=== PATIENT | female | born 1995 | race Caucasian/White ===

== ENCOUNTER 2020-09-02 05:18 | Inpatient (IN) | payer OTHER ==
[2020-09-02] MEDS ORDERED: Sodium Chloride 0.9% 10 ML SDV IV PRN (05:59)
[2020-09-02] MEDS ORDERED: Citric Acid/Sodium Citrate Solution 30 ML Cup PO ONE (05:59)
[2020-09-02] MEDS ORDERED: ceFAZolin 2 GM in Premix Bag 1 BAG IV ONE (05:59)
[2020-09-02] MEDS ORDERED: Sodium Chloride 0.9% 2.5 ML Syringe FLUSH PRN (05:59)
[2020-09-02] MEDS ORDERED: Sodium Chloride 0.9% 10 ML Syringe FLUSH PRN (05:59)
[2020-09-02] MEDS ORDERED: Oxytocin/0.9 % Sodium Chloride 30 UNIT/500 ML BAG IV SCH (06:00)
[2020-09-02] MEDS: Lactated Ringers 1,000 ML IV SCH ×4 (06:35→19:39)
--- NOTE | 2020-09-02 06:47 | PCM.PREANE ---
Preanesthetic Assessment - Anesthesia/Transfusion/Family Hx Anesthesia History: Prior Anesthesia Without Reaction Family History of Anesthesia Reaction: No Transfusion History: No Prior Transfusion(s) - Review of Systems General: No Symptoms Pulmonary: No Symptoms Cardiovascular: No Symptoms Gastrointestinal: No Symptoms Neurological: No Symptoms Other: Reports: None - Physical Assessment NPO Status Date: 09/01/20 NPO Status Time: 21:30 Height: 1.68 m Weight: 133.356 kg ASA Class: 3 Mental Status: Alert & Oriented x3 Airway Class: Mallampati = 1 Dentition: Reports: Normal Dentition Thyro-Mental Finger Breadths: 3 Mouth Opening Finger Breadths: 3 ROM/Head Extension: Full Lungs: Clear to Auscultation, Normal Respiratory Effort Cardiovascular: Regular Rate, Regular Rhythm - Lab Values: Laboratory Last Values Blood Type A POSITIVE 08/30/20 08:00 Antibody Screen NEGATIVE 08/30/20 08:00 - Allergies Allergies/Adverse Reactions: Allergies Allergy/AdvReac Type Severity Reaction Status Date / Time No Known Allergies Allergy Verified 08/31/20 08:42 - Blood Blood Available: Yes - Acknowledgements Anesthesia Type Planned: Spinal (The patient understands and accepts the anesthetic risks and benefits, including failed spinal. All questions answered. She has signed the consent. ) Pt an Appropriate Candidate for the Planned Anesthesia: Yes Alternatives and Risks of Anesthesia Discussed w Pt/Guardian: Yes Pt/Guardian Understands and Agrees with Anesthesia Plan: Yes PreAnesthesia Questionnaire - Past Health History Medical/Surgical History: Denies Medical/Surgical History HEENT History: Reports: None Cardiovascular History: Reports: None Respiratory History: Reports: None Gastrointestinal History: Reports: Other (See Below) Other Gastrointestinal History: occasional heartburn with Genitourinary History: Reports: None REHAB SERVICES AIDE History: Reports: Musculoskeletal History: Reports: Back Pain, Chronic (from bulging discs, saw a Chiropracter who made "adjustments".) Neurological History: Reports: None Psychiatric History: Reports: None Endocrine/Metabolic History: Reports: Obesity/BMI 30+ (morbid obesity:47.5) Hematologic History: Reports: Anemia Immunologic History: Reports: None Oncologic (Cancer) History: Reports: None Dermatologic History: Reports: None - Past Surgical History Head Surgeries/Procedures: Reports: None HEENT Surgical History: Reports: None Cardiovascular Surgical History: Reports: None Respiratory Surgical History: Reports: None GI Surgical History: Reports: None Female Surgical History: Reports: Section Endocrine Surgical History: Reports: None Neurological Surgical History: Reports: None Musculoskeletal Surgical History: Reports: None Oncologic Surgical History: Reports: None Dermatological Surgical History: Reports: None - History Comment History Comment: occasional etoh when she is not . - SUBSTANCE USE Tobacco Use Status *Q: Former Tobacco User (5 years ago.) Tobacco Use Within Last Twelve Months: No Recreational Drug Use History: No - HOME MEDS Home Medications: Home Meds Pnv No.95/Ferrous Fum/Folic AC [ Vitamin Tablet] 1 tab PO DAILY 08/31/20 [History] - CURRENT (IN HOUSE) MEDS Current Meds: Current Medications Oxytocin/Sodium Chloride (Oxytocin 30 Unit/500 Ml-Ns) 30 unit in 500 mls @ 250 mls/hr IV TITRATE SANGEETA Lactated Ringer's (Ringers, Lactated) 1,000 mls @ 500 mls/hr IV BOLUS SANGEETA Sodium Chloride (Saline Flush) 10 ml FLUSH ASDIRECTED PRN PRN Reason: Keep Vein Open Sodium Chloride (Saline Flush) 2.5 ml FLUSH ASDIRECTED PRN PRN Reason: Keep Vein Open Sodium Chloride (Normal Saline) 10 ml IV ASDIRECTED PRN PRN Reason: IV Use Discontinued Medications Citric Acid/Sodium Citrate (Bicitra Solution) 30 ml PO ONETIME ONE Stop: 09/02/20 06:00 Cefazolin Sodium/Dextrose 2 gm (/ Premix) 50 mls @ 100 mls/hr IV ONETIME ONE Stop: 09/02/20 06:28
[2020-09-02] MEDS ORDERED: ceFAZolin/Dextrose,Iso-Osmotic 2 GM/50 ML Duplex Bag IV ONE (07:01)
[2020-09-02] MEDS ORDERED: Morphine PF 10 MG/10 ML SDV ONE (07:06)
[2020-09-02] MEDS ORDERED: Phenylephrine 1% 10 MG/ML SDV ONE (07:46)
[2020-09-02] MEDS ORDERED: Sodium Chloride 0.9% 20 ML ONE (07:52)
[2020-09-02] MEDS ORDERED: Oxytocin 10 Units/1 ML SDV ONE (08:04)
[2020-09-02] MEDS ORDERED: Naloxone 0.4 MG/ML Syringe IVPUSH PRN (08:08)
[2020-09-02] MEDS ORDERED: diphenhydrAMINE 50 MG/ML SDV IVPUSH PRN ×2 (08:08→08:40)
[2020-09-02] MEDS ORDERED: Acetaminophen/HYDROcodone 325-5 MG Tab PO PRN (08:08)
--- NOTE | 2020-09-02 08:08 | PCM.SN.2 ---
- Free Text/Narrative Note: Spinal done with sterile technique. Patient's back prepped with chlorhexidine and draped. 1% lidocaine 3 ml for skin infiltration at l3-4l, then 1% lidocaine 2 ml skin infiltration at l2-l3. 25 gauge pencan- 1st attempt paresthesias at l3-l4, no csf or heme. 2nd attempt moved to l2-l3 with 25 gauge pencan +csf, no heme, no paresthesias. 1.5 ml of Hyperbaric bupivacaine (0.75%) WITH 0.25 MG OF DURAMORPH AT 0743. The patient tolerated the procedure well, and was able to communicate throughout the entire procedure. T 6 Sensory level. 2 attempts.
[2020-09-02] MEDS ORDERED: Dexamethasone 4 MG/ML 5 ML MDV ONE (08:17)
[2020-09-02] MEDS ORDERED: Ondansetron 4 MG/2 ML SDV ONE (08:17)
[2020-09-02] MEDS ORDERED: Ketorolac 30 MG/ML SDV ONE (08:17)
[2020-09-02] MEDS: Ketorolac 30 MG/ML SDV IVPUSH SCH ×3 (08:30→20:45)
[2020-09-02] MEDS ORDERED: Acetaminophen/oxyCODONE 325-5 MG Tab PO PRN (08:40)
[2020-09-02] MEDS ORDERED: Bisacodyl 10 MG Supp RECTAL PRN (08:40)
[2020-09-02] MEDS ORDERED: Ondansetron 4 MG/2 ML SDV IVPUSH PRN (08:40)
[2020-09-02] MEDS ORDERED: Lanolin 100% Cream 7 GM Tube TOP PRN (08:40)
[2020-09-02] MEDS ORDERED: Oxytocin 10 Units/1 ML SDV IM PRN (08:40)
[2020-09-02] MEDS ORDERED: Oxytocin/Lactated Ringers 30 UNIT/500 ML BAG IV SCH (08:45)
--- NOTE | 2020-09-02 08:47 | PCM.OPNOTE ---
- General Post-Op/Procedure Note Date of Surgery/Procedure: 09/02/20 Operative Procedure(s): Repeat low-transverse section. Removal of left fallopian tubal attachment Findings: Live female infant, Apgars 8/9, weight pending. Placenta intact and with 3-vessel cord. Normal-appearing uterus. Left fallopian tube with 1cm brown-colored attachment. Pre Op Diagnosis: 25yo @ 39w0d. History of x1, declines trial of labor. Obesity Post-Op Diagnosis: 25yo @ 39w0d. History of x1, declines trial of labor. Obesity. Left fallopian tube attachment Anesthesia Technique: Spinal Primary Surgeon: Aaliyah Thornton Anesthesia Provider: Eugenie Richards Pathology: Left fallopian tube attachment Fluid Replacement, Intraop: 2,000 Output, Urine Amount: 200 EBL in mLs: 500 Complications: None Condition: Good Free Text/Narrative:: Intake & Output 09/01/20 09/02/20 09/02/20 22:59 06:59 14:59 Output Total 200 Balance -200 Ancef 3g IV given prior to incision
--- NOTE | 2020-09-02 09:48 | PCM.POSTAN ---
POST ANESTHESIA ASSESSMENT - MENTAL STATUS Mental Status: Alert, Oriented - RESPIRATORY Respiratory Status: Respiratory Rate WNL, Airway Patent, O2 Saturation Stable - CARDIOVASCULAR CV Status: Pulse Rate WNL, Blood Pressure Stable - GASTROINTESTINAL GI Status: No Symptoms - PAIN Pain Score: 0 Free Text/Narrative:: Sitting up in bed, , appears comfortable and in no acute distress. Able to move thighs. There is no apparent anesthetic complications. She did complain of left hand tingling which is not likely related to spinal anesthesia and more likely positional. As left upper extremity motor and sensation are intact There is no apparent neurodeficits. Otherwise no other complaints. Discharge to floor per criteria. - POST OP HYDRATION Hydration Status: Adequate & Stable
--- NOTE | 2020-09-02 10:50 | OR ---
SURGEON: Aaliyah Thornton MD DATE OF PROCEDURE: 09/02/2020 PREOPERATIVE DIAGNOSES: 1. A 25-year-old G2, P1-0-0-1 at 39 weeks and 0 day gestation. 2. History of delivery x1 and declines trial of labor. 3. Obesity. POSTOPERATIVE DIAGNOSES: 1. A 25-year-old G2, P2-0-0-2. 2. History of delivery x1. Declines trial of labor. 3. Obesity. 4. Left fallopian tube attachment. PROCEDURE: Repeat low transverse section via Pfannenstiel and removal of left fallopian tube attachment. IV FLUIDS: 2000 mL LR. ESTIMATED BLOOD LOSS: 500 mL. URINE OUTPUT: 200 mL. PRIMARY SURGEON: Aaliyah Thornton MD ANESTHESIA: Spinal by Dr. Richards. ANTIBIOTIC PROPHYLAXIS: Ancef 3g IV. FINDINGS: Live female in cephalic presentation. scores 8 and 9 at one and five minutes respectively. Weight pending. Placenta intact with 3-vessel cord. Normal-appearing uterus. The left fallopian tube with 1 cm brown attachment. INDICATIONS: This is a 25-year-old G2, P1-0-0-1, who presented at 39 weeks and 0 day gestation for a scheduled repeat delivery. She declined trial of labor after . The risks and benefits of the procedure were reviewed with the patient prior to surgery. DESCRIPTION OF PROCEDURE: This patient was taken to the operating room, where spinal anesthesia was obtained. She was placed in the dorsal supine position with a leftward tilt. She was prepared and draped in the normal sterile fashion and a Mccann catheter was inserted. Pfannenstiel skin incision was made using the previous scar and carried through to the underlying layer of fascia with Bovie. The fascia was incised in the midline and the incision extended laterally with curved Pan scissors. The superior aspect of the fascial incision was grasped with Pj clamps, elevated, and underlying rectus muscles dissected off bluntly. In a similar fashion, the inferior aspect of the fascial incision was grasped with Pj clamps, elevated, and underlying rectus muscles dissected off bluntly. Diastasis was noted and the peritoneum was easily identified and entered bluntly with a finger. The peritoneal incision was extended using manual traction. Extra large Fazal retractor was inserted. A low uterine hysterotomy was created with a scalpel. Artificial rupture of membranes occurred with clear fluid noted. 's head was delivered atraumatically followed by the remainder of body with fundal pressure. At approximately 30 seconds, the cord was clamped and cut. The was handed off to the awaiting nurse and respiratory therapist. Cord blood was obtained. The placenta then delivered with uterine massage and gentle traction on the cord. The placenta was cleared of all clots and debris. Hysterotomy was repaired with a running lock stitch of 0 Vicryl suture. A 2nd stitch of the same suture was used to obtain hemostasis. The bilateral fallopian tubes were evaluated, and at this time the 1 cm brown-colored left fallopian tube attachment was identified and was removed with the Bovie. This was sent to Pathology for evaluation. The uterine incision was inspected and noted to be hemostatic. The fascial incision was closed with a running lock stitch of 0 Vicryl suture. Subcutaneous tissue was closed with 3-0 Vicryl in a running fashion. Skin was closed with 4-0 Monocryl in subcuticular fashion. The and mother tolerated the delivery well. [id number] / MODL /[id number] MTDD
[2020-09-02] MEDS: Docusate Sodium 100 MG Cap PO SCH ×2 (12:05→20:45)
[2020-09-03] MEDS: Ketorolac 30 MG/ML SDV IVPUSH SCH ×2 (02:41→09:00)
--- NOTE | 2020-09-03 07:20 | PCM48HPAN ---
Post Anesthesia Note - EVALUATION WITHIN 48HRS OF ANESTHETIC Vital Signs in Normal Range: Yes Patient Participated in Evaluation: Yes Respiratory Function Stable: Yes Airway Patent: Yes Cardiovascular Function Stable: Yes Hydration Status Stable: Yes Pain Control Satisfactory: Yes Nausea and Vomiting Control Satisfactory: Yes Mental Status Recovered: Yes Vital Signs: Last Vital Signs Temp 36.3 C 09/03/20 05:04 Pulse 72 09/03/20 06:00 Resp 20 09/03/20 06:00 BP 126/58 L 09/03/20 05:04 Pulse Ox 100 09/03/20 06:00
[2020-09-03] MEDS: Docusate Sodium 100 MG Cap PO SCH ×2 (09:01→21:18)
--- NOTE | 2020-09-03 10:53 | PCM.PNPP ---
- General Info Date of Service: 09/03/20 Functional Status: Reports: Pain Controlled, Tolerating Diet, Ambulating, Urinating - Review of Systems General: Reports: No Symptoms HEENT: Reports: No Symptoms Pulmonary: Reports: No Symptoms Cardiovascular: Reports: No Symptoms Gastrointestinal: Reports: No Symptoms Genitourinary: Reports: No Symptoms Musculoskeletal: Reports: No Symptoms Skin: Reports: No Symptoms Neurological: Reports: No Symptoms Psychiatric: Reports: No Symptoms - General Info Date of Service: 09/03/20 - Patient Data Vital Signs - Most Recent: Last Vital Signs Temp 36.2 C 09/03/20 07:35 Pulse 111 H 09/03/20 08:00 Resp 18 09/03/20 08:00 BP 116/57 L 09/03/20 07:35 Pulse Ox 100 09/03/20 08:00 Weight - Most Recent: 133.356 kg I&O - Last 24 Hours: Intake & Output 09/02/20 09/03/20 09/03/20 22:59 06:59 14:59 Output Total 1000 2800 1800 Balance -1000 -2800 -1800 Lab Results - Last 24 Hours: Laboratory Results - last 24 hr 09/03/20 Range/Units 04:59 Hgb 9.9 L (12.0-16.0) g/dL Hct 30.5 L (36.0-46.0) % Med Orders - Current: Current Medications Hydrocodone Bitart/Acetaminophen ([place] 325-5 Mg) 2 tab PO Q6H PRN PRN Reason: Pain (moderate 4-6) Bisacodyl (Dulcolax) 10 mg RECTAL ONETIME PRN PRN Reason: Constipation Diphenhydramine HCl (Benadryl) 25 mg IVPUSH Q6H PRN PRN Reason: Itching or Nausea Docusate Sodium (Colace) 100 mg PO BID [facility] Last Admin: 09/03/20 09:01 Dose: 100 mg Documented by: Emollient Ointment (Lansinoh Hpa) 0 gm TOP ASDIRECTED PRN PRN Reason: Sore Nipples Oxytocin/Sodium Chloride (Oxytocin 30 Unit/500 Ml-Ns) 30 unit in 500 mls @ 250 mls/hr IV TITRATE SANGEETA Lactated Ringer's (Ringers, Lactated) 1,000 mls @ 500 mls/hr IV BOLUS [facility] Last Admin: 09/02/20 07:05 Dose: 999 mls/hr Documented by: Lactated Ringer's (Ringers, Lactated) 1,000 mls @ 125 mls/hr IV ASDIRECTED SANGEETA Last Admin: 09/02/20 19:39 Dose: 125 mls/hr Documented by: Oxytocin/Lactated Ringer's (Pitocin In Lr 30 Units/500 Ml) 30 unit in 500 mls @ 999 mls/hr IV TITRATE SANGEETA; Protocol Ibuprofen (Motrin) 800 mg PO Q8H PRN PRN Reason: mild pain or fever Ondansetron HCl (Zofran) 4 mg IVPUSH Q4H PRN PRN Reason: Nausea/Vomiting Oxycodone/Acetaminophen (Percocet 325-5 Mg) 1 tab PO ONETIME PRN PRN Reason: Pain (moderate 4-6) Oxycodone/Acetaminophen (Percocet 325-5 Mg) 1 tab PO Q4H PRN PRN Reason: Pain (moderate 4-6) Oxycodone/Acetaminophen (Percocet 325-5 Mg) 2 tab PO Q4H PRN PRN Reason: Pain (moderate 4-6) Oxytocin (Pitocin) 10 unit IM ASDIRECTED PRN PRN Reason: Excessive Vaginal Bleeding Sodium Chloride (Saline Flush) 10 ml FLUSH ASDIRECTED PRN PRN Reason: Keep Vein Open Sodium Chloride (Saline Flush) 2.5 ml FLUSH ASDIRECTED PRN PRN Reason: Keep Vein Open Sodium Chloride (Normal Saline) 10 ml IV ASDIRECTED PRN PRN Reason: IV Use Discontinued Medications Cefazolin Sodium/Dextrose (Ancef) Confirm Administered Dose 2 gm IV .STK-MED ONE Stop: 09/02/20 07:02 Citric Acid/Sodium Citrate (Bicitra Solution) 30 ml PO ONETIME ONE Stop: 09/02/20 06:00 Last Admin: 09/02/20 12:05 Dose: Not Given Documented by: Dexamethasone (Dexamethasone) Confirm Administered Dose 20 mg .ROUTE .STK-MED ONE Stop: 09/02/20 08:18 Diphenhydramine HCl (Benadryl) 25 mg IVPUSH Q4H PRN PRN Reason: Itching Stop: 09/03/20 08:08 Cefazolin Sodium/Dextrose 2 gm (/ Premix) 50 mls @ 100 mls/hr IV ONETIME ONE Stop: 09/02/20 06:28 Last Admin: 09/02/20 12:05 Dose: Not Given Documented by: Cefazolin Sodium/Dextrose (Ancef) Confirm Administered Dose 50 mls @ as directed .ROUTE .STK-MED ONE Stop: 09/02/20 07:02 Sodium Chloride (Normal Saline) Confirm Administered Dose 20 mls @ as directed .ROUTE .STK-MED ONE Stop: 09/02/20 07:53 Ketorolac Tromethamine (Toradol) Confirm Administered Dose 30 mg .ROUTE .STK-MED ONE Stop: 09/02/20 08:18 Ketorolac Tromethamine (Toradol) 30 mg IVPUSH Q6H SANGEETA Stop: 09/03/20 08:46 Last Admin: 09/03/20 09:00 Dose: 30 mg Documented by: Morphine Sulfate (Duramorph Pf) Confirm Administered Dose 10 mg .ROUTE .STK-MED ONE Stop: 09/02/20 07:07 Naloxone HCl (Narcan) 0.1 mg IVPUSH ONETIME PRN PRN Reason: Respiratory Depression Stop: 09/03/20 08:09 Ondansetron HCl (Zofran) Confirm Administered Dose 4 mg .ROUTE .STK-MED ONE Stop: 09/02/20 08:18 Oxytocin (Pitocin) Confirm Administered Dose 30 unit .ROUTE .STK-MED ONE Stop: 09/02/20 08:05 Phenylephrine HCl (Jens-Synephrine) Confirm Administered Dose 10 mg .ROUTE .STK- MED ONE Stop: 09/02/20 07:47 - Infant Interaction Infant Disposition, : [place] in Room with Family Interaction: Holding Feeding: Breastfed Infant; Nursed Well - Recovery Exam Fundal Tone: Firm Fundal Level: 1 Fingerbreadths Below Umbilicus Fundal Placement: Midline Lochia Amount: Scant Lochia Color: Rubra/Red Perineum Description: Intact, Minimal Bruising/Swelling Episiotomy/Laceration: None Bladder Status: Voiding Urinary Elimination: Voided - Exam General: Alert, Oriented HEENT: Pupils Equal Neck: Supple Lungs: Clear to Auscultation, Normal Respiratory Effort Cardiovascular: Regular Rate, Regular Rhythm Extremities: Normal Inspection, Normal Range of Motion, Non-Tender, Pedal Edema (trace) Skin: Warm, Dry, Intact Wound/Incisions: Healing Well Neurological: No New Focal Deficit - Problem List & Annotations (1) S/P repeat low transverse SNOMED Code(s): 265029796, 82419660, 608730700, 318987803, 780964758 Code(s): Z98.891 - HISTORY OF UTERINE SCAR FROM PREVIOUS SURGERY Status: Acute Current Visit: Yes - Problem List Review Problem List Initiated/Reviewed/Updated: Yes - Assessment Assessment:: POD#1 after repeat , stable, minimal lochia, tolerating diet well. Continue with postop care
[2020-09-03] MEDS: Acetaminophen/oxyCODONE 325-5 MG Tab PO PRN ×2 (18:06→20:00)
[2020-09-03] MEDS: Ibuprofen 800 MG Tab PO PRN (18:07)
[2020-09-04] MEDS: Acetaminophen/oxyCODONE 325-5 MG Tab PO PRN ×2 (00:50→07:36)
[2020-09-04] MEDS: Ibuprofen 800 MG Tab PO PRN (02:15)
[2020-09-04 07:39] VITALS: BP 141/78; PULSE 78
--- NOTE | 2020-09-04 09:09 | PCM.PNPP ---
- General Info Date of Service: 09/04/20 Functional Status: Reports: Pain Controlled, Tolerating Diet, Ambulating, Urinating - Review of Systems General: Reports: No Symptoms HEENT: Reports: No Symptoms Pulmonary: Reports: No Symptoms Cardiovascular: Reports: No Symptoms Gastrointestinal: Reports: No Symptoms Genitourinary: Reports: No Symptoms Musculoskeletal: Reports: No Symptoms Skin: Reports: No Symptoms Neurological: Reports: No Symptoms Psychiatric: Reports: No Symptoms - Patient Data Vital Signs - Most Recent: Last Vital Signs Temp 35.8 C L 09/04/20 07:38 Pulse 78 09/04/20 07:38 Resp 15 09/04/20 07:38 BP 141/78 H 09/04/20 07:38 Pulse Ox 99 09/04/20 07:38 Weight - Most Recent: 133.356 kg Med Orders - Current: Current Medications Hydrocodone Bitart/Acetaminophen ([place] 325-5 Mg) 2 tab PO Q6H PRN PRN Reason: Pain (moderate 4-6) Bisacodyl (Dulcolax) 10 mg RECTAL ONETIME PRN PRN Reason: Constipation Diphenhydramine HCl (Benadryl) 25 mg IVPUSH Q6H PRN PRN Reason: Itching or Nausea Docusate Sodium (Colace) 100 mg PO BID SANGEETA Last Admin: 09/03/20 21:18 Dose: 100 mg Documented by: Emollient Ointment (Lansinoh Hpa) 0 gm TOP ASDIRECTED PRN PRN Reason: Sore Nipples Oxytocin/Sodium Chloride (Oxytocin 30 Unit/500 Ml-Ns) 30 unit in 500 mls @ 250 mls/hr IV TITRATE SANGEETA Lactated Ringer's (Ringers, Lactated) 1,000 mls @ 500 mls/hr IV BOLUS [facility] Last Admin: 09/02/20 07:05 Dose: 999 mls/hr Documented by: Lactated Ringer's (Ringers, Lactated) 1,000 mls @ 125 mls/hr IV ASDIRECTED SANGEETA Last Admin: 09/02/20 19:39 Dose: 125 mls/hr Documented by: Oxytocin/Lactated Ringer's (Pitocin In Lr 30 Units/500 Ml) 30 unit in 500 mls @ 999 mls/hr IV TITRATE SANGEETA; Protocol Ibuprofen (Motrin) 800 mg PO Q8H PRN PRN Reason: mild pain or fever Last Admin: 09/04/20 02:15 Dose: 800 mg Documented by: Ondansetron HCl (Zofran) 4 mg IVPUSH Q4H PRN PRN Reason: Nausea/Vomiting Oxycodone/Acetaminophen (Percocet 325-5 Mg) 1 tab PO ONETIME PRN PRN Reason: Pain (moderate 4-6) Last Admin: 09/03/20 20:00 Dose: 1 tab Documented by: Oxycodone/Acetaminophen (Percocet 325-5 Mg) 1 tab PO Q4H PRN PRN Reason: Pain (moderate 4-6) Last Admin: 09/03/20 13:14 Dose: 1 tab Documented by: Oxycodone/Acetaminophen (Percocet 325-5 Mg) 2 tab PO Q4H PRN PRN Reason: Pain (moderate 4-6) Last Admin: 09/04/20 07:36 Dose: 2 tab Documented by: Oxytocin (Pitocin) 10 unit IM ASDIRECTED PRN PRN Reason: Excessive Vaginal Bleeding Sodium Chloride (Saline Flush) 10 ml FLUSH ASDIRECTED PRN PRN Reason: Keep Vein Open Sodium Chloride (Saline Flush) 2.5 ml FLUSH ASDIRECTED PRN PRN Reason: Keep Vein Open Sodium Chloride (Normal Saline) 10 ml IV ASDIRECTED PRN PRN Reason: IV Use Discontinued Medications Cefazolin Sodium/Dextrose (Ancef) Confirm Administered Dose 2 gm IV .STK-MED ONE Stop: 09/02/20 07:02 Citric Acid/Sodium Citrate (Bicitra Solution) 30 ml PO ONETIME ONE Stop: 09/02/20 06:00 Last Admin: 09/02/20 12:05 Dose: Not Given Documented by: Dexamethasone (Dexamethasone) Confirm Administered Dose 20 mg .ROUTE .STK-MED ONE Stop: 09/02/20 08:18 Diphenhydramine HCl (Benadryl) 25 mg IVPUSH Q4H PRN PRN Reason: Itching Stop: 09/03/20 08:08 Cefazolin Sodium/Dextrose 2 gm (/ Premix) 50 mls @ 100 mls/hr IV ONETIME ONE Stop: 09/02/20 06:28 Last Admin: 09/02/20 12:05 Dose: Not Given Documented by: Cefazolin Sodium/Dextrose (Ancef) Confirm Administered Dose 50 mls @ as directed .ROUTE .STK-MED ONE Stop: 09/02/20 07:02 Sodium Chloride (Normal Saline) Confirm Administered Dose 20 mls @ as directed .ROUTE .STK-MED ONE Stop: 09/02/20 07:53 Ketorolac Tromethamine (Toradol) Confirm Administered Dose 30 mg .ROUTE .STK-MED ONE Stop: 09/02/20 08:18 Ketorolac Tromethamine (Toradol) 30 mg IVPUSH Q6H SANGEETA Stop: 09/03/20 08:46 Last Admin: 09/03/20 09:00 Dose: 30 mg Documented by: Morphine Sulfate (Duramorph Pf) Confirm Administered Dose 10 mg .ROUTE .STK-MED ONE Stop: 09/02/20 07:07 Naloxone HCl (Narcan) 0.1 mg IVPUSH ONETIME PRN PRN Reason: Respiratory Depression Stop: 09/03/20 08:09 Ondansetron HCl (Zofran) Confirm Administered Dose 4 mg .ROUTE .STK-MED ONE Stop: 09/02/20 08:18 Oxytocin (Pitocin) Confirm Administered Dose 30 unit .ROUTE .STK-MED ONE Stop: 09/02/20 08:05 Phenylephrine HCl (Jens-Synephrine) Confirm Administered Dose 10 mg .ROUTE .STK- MED ONE Stop: 09/02/20 07:47 - Infant Interaction Disposition, : [place] in Room with Family Interaction: Holding Feeding: Breastfed Infant; Nursed Well - Recovery Exam Fundal Tone: Firm Fundal Level: 2 Fingerbreadths Below Umbilicus Fundal Placement: Midline Lochia Amount: Scant Lochia Color: Rubra/Red Perineum Description: Intact, Minimal Bruising/Swelling Episiotomy/Laceration: None Bladder Status: Voiding Urinary Elimination: Voided - Exam General: Alert, Oriented Lungs: Normal Respiratory Effort GI/Abdominal Exam: Soft, Non-Tender, No Distention Extremities: Normal Range of Motion, Non-Tender, Pedal Edema (1+ equal bilaterally) Skin: Warm, Dry, Intact Wound/Incisions: Healing Well Neurological: No New Focal Deficit - Problem List & Annotations (1) S/P repeat low transverse SNOMED Code(s): 232023551, 12285177, 509969040, 940606984, [id number] Code(s): Z98.891 - HISTORY OF UTERINE SCAR FROM PREVIOUS SURGERY Status: Acute Current Visit: Yes - Problem List Review Problem List Initiated/Reviewed/Updated: Yes - My Orders Last 24 Hours: My Active Orders 09/04/20 09:08 Ready for Discharge [RC] PER UNIT ROUTINE - Assessment Assessment:: POD#2 after repeat , stable, minimal lochia, tolerating diet well. Pain is well controlled ready for discharge. - Plan Plan:: Dismiss to home. Discharge precautions given and questions answered.
== END 2020-09-04 10:08 | disposition home or self-care (01) | DRG 785 ==
LOC: MW.OB 05:18
PROVIDERS: ADMIT Obstetrics & Gynecology; ATTEND Obstetrics & Gynecology
PROC: 10D00Z1 Extraction of Products of Conception, Low, Open Approach (ICD-10-PCS; principal; 2020-09-02)
PROC: 0UT60ZZ Resection of Left Fallopian Tube, Open Approach (ICD-10-PCS; 2020-09-02)
DX: O34.211 Maternal care for low transverse scar from previous cesarean delivery (principal); O99.214 Obesity complicating childbirth; E66.9 Obesity, unspecified; Z3A.39 39 weeks gestation of pregnancy; Z37.0 Single live birth
CPT/HCPCS: 01961; 36415; 59025; 85014; 85018; 86850; 86900; 86901; 88304; A9270-GY; J0690; J1100; J1885; J2270; J2370; J2405; J2590; J7120